=== PATIENT | male | born 1985 | race Caucasian/White ===

== ENCOUNTER 2020-09-07 04:22 | Inpatient (IN) | payer BC ==
[2020-09-07] MEDS ORDERED: Ondansetron PF 4 MG/2 ML Vial ONE (04:45)
[2020-09-07 04:52] LABS: #Eosinphils 0.2 thou/uL (0.0-0.7); #Lymphocytes 1.4 thou/uL (1.20-3.40); #Monocytes 0.7 thou/uL (0.11-0.59); #Neutrophils 7.4 thou/uL (1.40-6.50); %Basophils 0.5 % (0.0-1.0); %Eosinophils 1.6 % (0.0-10.0); %Lymphocytes 14.6 % (21.0-51.0); %Monocytes 7.6 % (0.0-10.0); %Neutrophils 75.8 % (42.0-75.0); Hemoglobin 15.3 g/dL (14.0-18.0); Mean Corpuscular HGB CONC 32.6 g/dL (32.0-36.0); Mean Corpuscular Hemoglobin 28.1 pg (27.0-31.0); Mean Corpuscular Volume 86.2 fL (78.0-98.0); Mean Platelet Volume 7.4 fL (7.4-10.4); Platelet Count 373 thou/uL (130-400); RBC Distribution Width 12.9 % (11.5-14.5); Red Blood Cell (RBC) Count 5.44 mill/uL (4.70-6.10); White Blood Cell (WBC) Count 9.8 thou/uL (4.8-10.8)
[2020-09-07 05:00] LABS: Analyzer IN Cardio ER; Base Excess -20.1 mEq/L (-2.0 to +3.0); Calcium, Ionized (venous) 1.17 mmol/L (1.16-1.32); Chloride (VBG) 99 mmol/L (98-106); Hemoglobin (Hb) 16.2 g/dL (13.2-17.3); Potassium (VBG) 4.52 mmol/L (3.70-5.30); Sodium 128.7 mmol/L (133-146)
[2020-09-07 05:05] LABS: pH (venous) 7.19 (7.32-7.43)
[2020-09-07 05:06] LABS: Actual Bicarbonate (HCO3v) 5 mEq/L (22-28)
[2020-09-07 05:14] LABS: ALT (SGPT) 34 U/L (8-55); AST (SGOT) 25 U/L (5-34); Albumin 4.4 g/dL (3.5-5.0); Alkaline Phosphatase 106 U/L (40-110); BUN (Urea Nitrogen) 8 mg/dL (8.9-20.6); Bilirubin, Total 0.4 mg/dL (0.2-1.2); Calc. Creatinine Clearance 0 mL/min (70-130); Calcium 8.7 mg/dL (7.8-10.44); Chloride 101 mmol/L (98-107); Globulin 4.2 g/dL (2.4-3.5); Glucose 368 mg/dL (70-105); Lipase 25 U/L (8-78); Magnesium 2.1 mg/dL (1.6-2.6); Potassium 3.6 mmol/L (3.5-5.1); Protein, Total 8.6 g/dL (6.0-8.3); Sodium 127 mmol/L (136-145)
[2020-09-07 05:18] LABS: Carbon Dioxide Less than 8 mmol/L (22-29)
[2020-09-07] MEDS ORDERED: Insulin Regular 300 UNITS/3 ML VIAL ONE (05:29)
[2020-09-07] MEDS ORDERED: INSULIN REGULAR IN 0.9 % NACL 100 UNIT/100 ML BAG ONE (05:32)
[2020-09-07] MEDS ORDERED: Bisacodyl 5 MG TAB PO PRN (06:20)
[2020-09-07] MEDS ORDERED: HYDROcodone/Acetaminophen 5/325 mg Tablet PO PRN (06:20)
[2020-09-07] MEDS ORDERED: Ondansetron PF 4 MG/2 ML Vial IVP PRN (06:20)
[2020-09-07] MEDS ORDERED: Electrolyte Replacement Protocol 1 EACH IVPB ONE (06:20)
[2020-09-07] MEDS ORDERED: Dextrose 5 %-0.45 % NaCl 1,000 ML IV PRN (06:20)
[2020-09-07] MEDS ORDERED: NS 0.9% w/ 20 MEQ KCL 1,000 ML IV PRN ×2 (06:20)
[2020-09-07] MEDS ORDERED: Sodium Chloride 0.9% 1,000 ML IV PRN ×4 (06:20)
[2020-09-07] MEDS ORDERED: Acetaminophen 325 MG TAB PO PRN (06:20)
[2020-09-07] MEDS ORDERED: Morphine 2 MG/ML VIAL SLOW IVP PRN (06:26)
[2020-09-07] MEDS ORDERED: Labetalol HCl 100 MG/20 ML VIAL SLOW IVP PRN (06:26)
[2020-09-07] MEDS ORDERED: Sodium Bicarb 50 MEQ/50 ML Abboject 8.4% SYRINGE IVP SCH (06:30)
[2020-09-07] MEDS ORDERED: Electrolyte Replacement Protocol FS PRN (06:45)
[2020-09-07 07:21] LABS: BUN (Urea Nitrogen) 8 mg/dL (8.9-20.6); Calc. Creatinine Clearance 0 mL/min (70-130); Calcium 8.2 mg/dL (7.8-10.44); Carbon Dioxide Less than 8 mmol/L (22-29); Chloride 109 mmol/L (98-107); Glucose 189 mg/dL (70-105); Phosphorus 1.5 mg/dL (2.3-4.7); Potassium 3.6 mmol/L (3.5-5.1); Sodium 132 mmol/L (136-145)
[2020-09-07 07:47] LABS: SARS-CoV-2 NAA Rapid Test Not Detected (NotDetected)
[2020-09-07 08:01] VITALS: BMI 54.6
[2020-09-07] MEDS: Famotidine 20 MG TAB PO SCH ×2 (09:41→20:04)
[2020-09-07] MEDS: Enoxaparin Sodium 40 MG/0.4 ML SYRINGE SC SCH (09:41)
[2020-09-07] MEDS: PHOS-NAK 1 PKT PACK PO SCH ×5 (09:41→23:09)
[2020-09-07] MEDS: D5 1/2 NS w/20 mEq KCL 1,000 ML IV PRN ×4 (11:38→23:09)
[2020-09-07 11:44] LABS: BUN (Urea Nitrogen) 8 mg/dL (8.9-20.6); Calc. Creatinine Clearance 211 mL/min (70-130); Calcium 7.9 mg/dL (7.8-10.44); Chloride 107 mmol/L (98-107); Glucose 240 mg/dL (70-105); Potassium 3.2 mmol/L (3.5-5.1); Sodium 132 mmol/L (136-145)
[2020-09-07 11:56] LABS: Carbon Dioxide Less than 8 mmol/L (22-29)
[2020-09-07 13:27] LABS: Albumin 3.9 g/dL (3.5-5.0); BUN (Urea Nitrogen) 7 mg/dL (8.9-20.6); BUN/Creatinine Ratio 5.15; Calc. Creatinine Clearance 205 mL/min (70-130); Chloride 107 mmol/L (98-107); Glucose 246 mg/dL (70-105); Potassium 3.3 mmol/L (3.5-5.1); Sodium 132 mmol/L (136-145)
[2020-09-07 13:35] LABS: Carbon Dioxide Less than 8 mmol/L (22-29); Phosphorus 1.7 mg/dL (2.3-4.7)
[2020-09-07] MEDS ORDERED: Potassium Chloride 20 MEQ TAB PO SCH (14:00)
[2020-09-07 15:11] LABS: Anion Gap 20 mmol/L (10-20); BUN (Urea Nitrogen) 7 mg/dL (8.9-20.6); Calc. Creatinine Clearance 211 mL/min (70-130); Calcium 7.9 mg/dL (7.8-10.44); Chloride 107 mmol/L (98-107); Glucose 233 mg/dL (70-105); Potassium 3.2 mmol/L (3.5-5.1); Sodium 132 mmol/L (136-145)
[2020-09-07 15:15] LABS: Carbon Dioxide 8 mmol/L (22-29)
[2020-09-07] MEDS: HUMULIN R 100 UNITS in Sodium Chloride 0.9% 100 ML IVPB SCH (15:28)
[2020-09-07 19:17] LABS: Anion Gap 18 mmol/L (10-20); BUN (Urea Nitrogen) 6 mg/dL (8.9-20.6); Calc. Creatinine Clearance 210 mL/min (70-130); Calcium 7.9 mg/dL (7.8-10.44); Carbon Dioxide 8 mmol/L (22-29); Chloride 109 mmol/L (98-107); Glucose 184 mg/dL (70-105); Magnesium 2.1 mg/dL (1.6-2.6); Phosphorus 1.2 mg/dL (2.3-4.7); Potassium 3.6 mmol/L (3.5-5.1); Sodium 131 mmol/L (136-145)
[2020-09-07 23:25] LABS: Anion Gap 17 mmol/L (10-20); BUN (Urea Nitrogen) 6 mg/dL (8.9-20.6); Calc. Creatinine Clearance 229 mL/min (70-130); Calcium 7.9 mg/dL (7.8-10.44); Chloride 111 mmol/L (98-107); Glucose 177 mg/dL (70-105); Potassium 3.6 mmol/L (3.5-5.1); Sodium 133 mmol/L (136-145)
[2020-09-07 23:26] LABS: Bacteria/HPF None Seen HPF (None Seen); Bilirubin Negative (Negative); Blood, Urine 1+ (Negative); Clarity Clear (Clear); Glucose, Urine (Dipstick) 300 mg/dL (Negative); Ketone, Urine 100 mg/dL (Negative); Leukocyte Negative Leu/uL (Negative); Nitrite Negative (Negative); Protein, Urine (Dipstick) 70 mg/dL (Neg-Trace); RBC/HPF 0-3 HPF (0-3); Specific Gravity, Urine 1.015 (1.002-1.036); Squamous Epithelial 0-3 HPF (0-3); Urobilinogen Normal mg/dL (Less than 2); WBC/HPF 0-3 HPF (0-3)
[2020-09-07 23:35] LABS: Carbon Dioxide 9 mmol/L (22-29)
[2020-09-08] MEDS: HUMULIN R 100 UNITS in Sodium Chloride 0.9% 100 ML IVPB SCH (00:02)
[2020-09-08] MEDS: PHOS-NAK 1 PKT PACK PO SCH ×3 (02:43→12:44)
[2020-09-08] MEDS: D5 1/2 NS w/20 mEq KCL 1,000 ML IV PRN (04:06)
[2020-09-08 06:22] LABS: Anion Gap 14 mmol/L (10-20); BUN (Urea Nitrogen) 5 mg/dL (8.9-20.6); Calc. Creatinine Clearance 247 mL/min (70-130); Calcium 8.1 mg/dL (7.8-10.44); Carbon Dioxide 10 mmol/L (22-29); Chloride 116 mmol/L (98-107); Glucose 155 mg/dL (70-105); Potassium 4.2 mmol/L (3.5-5.1); Sodium 136 mmol/L (136-145)
[2020-09-08] MEDS ORDERED: Magnesium 2 GM/50 ML 2 GM in Premix Bag 1 BAG IVPB SCH (06:30)
[2020-09-08] MEDS: Dextrose 5%-Lactated Ringers 1,000 ML IV SCH ×2 (08:38→12:57)
[2020-09-08 08:52] LABS: #Eosinphils 0.1 thou/uL (0.0-0.7); #Lymphocytes 1.8 thou/uL (1.20-3.40); #Monocytes 0.7 thou/uL (0.11-0.59); #Neutrophils 2.8 thou/uL (1.40-6.50); %Basophils 0.8 % (0.0-1.0); %Eosinophils 2.3 % (0.0-10.0); %Lymphocytes 32.8 % (21.0-51.0); %Monocytes 12.2 % (0.0-10.0); %Neutrophils 51.9 % (42.0-75.0); Hemoglobin 13.9 g/dL (14.0-18.0); Mean Corpuscular HGB CONC 34.3 g/dL (32.0-36.0); Mean Corpuscular Hemoglobin 29.6 pg (27.0-31.0); Mean Corpuscular Volume 86.2 fL (78.0-98.0); Platelet Count 279 thou/uL (130-400); RBC Distribution Width 12.8 % (11.5-14.5); Red Blood Cell (RBC) Count 4.71 mill/uL (4.70-6.10); White Blood Cell (WBC) Count 5.4 thou/uL (4.8-10.8)
[2020-09-08 09:14] LABS: Phosphorus 1.3 mg/dL (2.3-4.7)
[2020-09-08] MEDS: Famotidine 20 MG TAB PO SCH ×2 (09:38→20:44)
[2020-09-08] MEDS: Enoxaparin Sodium 40 MG/0.4 ML SYRINGE SC SCH (09:38)
[2020-09-08] MEDS ORDERED: Potassium Phosphate 22 MMOL in Sodium Chloride 0.9% 250 ML 250 ML IVPB SCH (11:45)
[2020-09-08] MEDS ORDERED: Dextrose 50% Abboject 50 ML SYRINGE SLOW IVP PRN (13:30)
[2020-09-08] MEDS ORDERED: Dextrose 5% in Water 1,000 ML IV PRN (13:30)
[2020-09-08] MEDS ORDERED: Lantus 1000 UNITS/10 ML VIAL SC SCH (15:00)
[2020-09-08] MEDS: Lactated Ringer's 1,000 ML IV SCH (15:02)
[2020-09-08 16:28] LABS: Anion Gap 16 mmol/L (10-20); BUN (Urea Nitrogen) Less than 4 mg/dL (8.9-20.6); Calc. Creatinine Clearance 250 mL/min (70-130); Calcium 8.2 mg/dL (7.8-10.44); Carbon Dioxide 14 mmol/L (22-29); Chloride 107 mmol/L (98-107); Glucose 239 mg/dL (70-105); Sodium 134 mmol/L (136-145)
[2020-09-08] MEDS ORDERED: Sodium Bicarbonate Tab 325 MG TAB PO SCH (19:00)
[2020-09-08] MEDS: Lantus 1000 UNITS/10 ML VIAL SC SCH (20:44)
[2020-09-08] MEDS: Sodium Bicarbonate Tab 325 MG TAB PO SCH (21:32)
[2020-09-09] MEDS: Lactated Ringer's 1,000 ML IV SCH ×4 (00:56→12:00)
[2020-09-09 05:24] LABS: Anion Gap 16 mmol/L (10-20); BUN (Urea Nitrogen) Less than 4 mg/dL (8.9-20.6); Calc. Creatinine Clearance 283 mL/min (70-130); Calcium 8.4 mg/dL (7.8-10.44); Carbon Dioxide 19 mmol/L (22-29); Chloride 104 mmol/L (98-107); Glucose 224 mg/dL (70-105); Sodium 136 mmol/L (136-145)
[2020-09-09 05:30] LABS: Potassium 2.7 mmol/L (3.5-5.1)
[2020-09-09] MEDS ORDERED: Potassium Chloride 20 MEQ TAB PO SCH ×2 (06:00→10:00)
[2020-09-09] MEDS ORDERED: Magnesium 2 GM/50 ML 2 GM in Premix Bag 1 BAG IVPB SCH (06:00)
[2020-09-09] MEDS: PHOS-NAK 1 PKT PACK PO SCH ×3 (06:25→20:53)
[2020-09-09] MEDS: HumaLOG 300 UNITS/3 ML VIAL SC PRN ×3 (06:27→20:55)
[2020-09-09] MEDS ORDERED: Potassium Phosphate 30 MMOL in Sodium Chloride 0.9% 250 ML 250 ML IVPB SCH ×2 (07:30→16:30)
[2020-09-09] MEDS: Losartan 25 MG TAB PO SCH (11:02)
[2020-09-09] MEDS: Famotidine 20 MG TAB PO SCH ×2 (11:02→20:54)
[2020-09-09] MEDS: Enoxaparin Sodium 40 MG/0.4 ML SYRINGE SC SCH (11:02)
[2020-09-09] MEDS: Potassium Chloride 20 MEQ TAB PO SCH ×2 (11:03→18:21)
[2020-09-09] MEDS: Sodium Bicarbonate Tab 325 MG TAB PO SCH ×3 (11:03→20:54)
[2020-09-09] MEDS ORDERED: PHOS-NAK 1 PKT PACK PO SCH (11:15)
[2020-09-09] MEDS ORDERED: Fleet Enema 133 ML BOT FS PRN (11:35)
[2020-09-09] MEDS ORDERED: Lorazepam 2 MG/ML VIAL SLOW IVP PRN (13:49)
[2020-09-09] MEDS ORDERED: ALPRAZolam 0.25 MG TAB PO PRN (14:30)
[2020-09-09 15:27] LABS: Albumin 3.5 g/dL (3.5-5.0); Anion Gap 14 mmol/L (10-20); BUN (Urea Nitrogen) Less than 4 mg/dL (8.9-20.6); BUN/Creatinine Ratio 4.04; Calc. Creatinine Clearance 278 mL/min (70-130); Calcium 8.3 mg/dL (7.8-10.44); Carbon Dioxide 22 mmol/L (22-29); Chloride 103 mmol/L (98-107); Glucose 271 mg/dL (70-105); Phosphorus 1.9 mg/dL (2.3-4.7); Potassium 3.1 mmol/L (3.5-5.1); Sodium 136 mmol/L (136-145)
[2020-09-09] MEDS ORDERED: Lactated Ringer's 1,000 ML IV SCH (16:30)
[2020-09-09] MEDS: Lantus 1000 UNITS/10 ML VIAL SC SCH (20:55)
[2020-09-10] MEDS: HumaLOG 300 UNITS/3 ML VIAL SC PRN ×4 (05:43→20:38)
[2020-09-10] MEDS ORDERED: Potassium Chloride 10 MEQ TAB PO SCH (06:30)
[2020-09-10 07:03] LABS: Hemoglobin 11.6 g/dL (14.0-18.0); Hemoglobin A1c 11.8 % (4.0-6.0); Mean Corpuscular Hemoglobin 30.3 pg (27.0-31.0); Mean Corpuscular Volume 86.5 fL (78.0-98.0); Mean Platelet Volume 7.7 fL (7.4-10.4); Platelet Count 251 thou/uL (130-400); Red Blood Cell (RBC) Count 3.83 mill/uL (4.70-6.10); White Blood Cell (WBC) Count 4.3 thou/uL (4.8-10.8)
[2020-09-10 07:24] LABS: Albumin 3.2 g/dL (3.5-5.0); Anion Gap 13 mmol/L (10-20); BUN (Urea Nitrogen) Less than 4 mg/dL (8.9-20.6); Calc. Creatinine Clearance 324 mL/min (70-130); Calcium 8.2 mg/dL (7.8-10.44); Carbon Dioxide 24 mmol/L (22-29); Chloride 102 mmol/L (98-107); Glucose 258 mg/dL (70-105); Phosphorus 2.8 mg/dL (2.3-4.7); Potassium 2.5 mmol/L (3.5-5.1); Sodium 136 mmol/L (136-145)
[2020-09-10] MEDS ORDERED: HumuLIN 70/30 (300 UNITS/3 ML VIAL) SC SCH (09:00)
[2020-09-10 09:57] LABS: Band 3 % (5-11); Eosinophils 5 % (0-10); Lymphocytes 42 % (21-51); MDiff Complete? YES; Metamyelocyte 1 % (0-0); Monocytes 14 % (0-10); Neutrophil 33 % (42-75); Platelet Morphology Comment Appears Adequate; RBC Morphology Normal
[2020-09-10] MEDS: PHOS-NAK 1 PKT PACK PO SCH ×5 (09:57→20:28)
[2020-09-10] MEDS: Sodium Bicarbonate Tab 325 MG TAB PO SCH ×3 (09:58→20:29)
[2020-09-10] MEDS: Enoxaparin Sodium 40 MG/0.4 ML SYRINGE SC SCH (09:58)
[2020-09-10] MEDS: Famotidine 20 MG TAB PO SCH ×2 (09:58→20:29)
[2020-09-10] MEDS: Losartan 25 MG TAB PO SCH (10:01)
[2020-09-10] MEDS: Potassium Chloride 20 MEQ TAB PO SCH ×2 (10:03→12:42)
[2020-09-10] MEDS ORDERED: Lantus 1000 UNITS/10 ML VIAL SC SCH (21:00)
[2020-09-11] MEDS: HumaLOG 300 UNITS/3 ML VIAL SC PRN ×2 (05:38→12:28)
[2020-09-11 07:51] LABS: Anion Gap 13 mmol/L (10-20); BUN (Urea Nitrogen) Less than 4 mg/dL (8.9-20.6); Calc. Creatinine Clearance 349 mL/min (70-130); Calcium 8.3 mg/dL (7.8-10.44); Carbon Dioxide 27 mmol/L (22-29); Chloride 102 mmol/L (98-107); Glucose 263 mg/dL (70-105); Sodium 139 mmol/L (136-145)
[2020-09-11 07:54] LABS: Potassium 2.8 mmol/L (3.5-5.1)
[2020-09-11] MEDS ORDERED: metFORMIN 500 MG TAB PO SCH (08:00)
[2020-09-11] MEDS ORDERED: Magnesium 2 GM/50 ML 2 GM in Premix Bag 1 BAG IVPB SCH (08:15)
[2020-09-11 08:19] VITALS: BP 119/53; TEMP 98
[2020-09-11] MEDS ORDERED: Rosuvastatin 20 MG TAB PO SCH (09:00)
[2020-09-11] MEDS ORDERED: Lantus 1000 UNITS/10 ML VIAL SC SCH (09:00)
[2020-09-11] MEDS: Enoxaparin Sodium 40 MG/0.4 ML SYRINGE SC SCH (09:11)
[2020-09-11] MEDS: PHOS-NAK 1 PKT PACK PO SCH (09:12)
[2020-09-11] MEDS: Losartan 25 MG TAB PO SCH (09:12)
[2020-09-11] MEDS: Famotidine 20 MG TAB PO SCH (09:12)
[2020-09-11] MEDS: Potassium Chloride 20 MEQ TAB PO SCH ×2 (09:12→12:29)
== END 2020-09-11 12:45 | disposition home or self-care (01) | DRG 638 ==
LOC: ERS 04:22 → IMCU/EMU 05:49 → ONC 09-09 09:06
PROVIDERS: ADMIT Internal Medicine; ATTEND Internal Medicine
DX: E10.10 Type 1 diabetes mellitus with ketoacidosis without coma (principal); N17.9 Acute kidney failure, unspecified; E87.1 Hypo-osmolality and hyponatremia; Z68.43 Body mass index [BMI] 50.0-59.9, adult; Z20.822 Contact with and (suspected) exposure to COVID-19; I10 Essential (primary) hypertension; E66.01 Morbid (severe) obesity due to excess calories; I16.0 Hypertensive urgency; E83.42 Hypomagnesemia; E83.39 Other disorders of phosphorus metabolism; E87.6 Hypokalemia; Z79.4 Long term (current) use of insulin; Z79.899 Other long term (current) drug therapy
CPT/HCPCS: 36415; 36416; 71045; 80048; 80053; 80069; 81003; 81015; 82010; 82805; 83036; 83690; 83735; 84100; 84484; 85025; 93005; 96365; 96366; 96374; 96375; J1650; J1815; J2405; J3475; J3480; J3490; J7050; U0002

== ENCOUNTER 2023-06-09 10:20 | Emergency (ER) | payer BC, SELFPAY ==
[2023-06-09 12:26] LABS: ALT (SGPT) 13 U/L (8-55); AST (SGOT) 12 U/L (5-34); Albumin 4.5 g/dL (3.5-5.0); Alkaline Phosphatase 44 U/L (40-110); Anion Gap 15 mmol/L (10-20); BUN (Urea Nitrogen) 8 mg/dL (8.9-20.6); Bilirubin, Total 0.6 mg/dL (0.2-1.2); Calc. Creatinine Clearance 0 mL/min (70-130); Calcium 9.5 mg/dL (7.8-10.44); Carbon Dioxide 21 mmol/L (22-29); Chloride 105 mmol/L (98-107); Estimated GFR 118; Glucose 109 mg/dL (70-105); Potassium 3.9 mmol/L (3.5-5.1); Protein, Total 7.5 g/dL (6.0-8.3); Sodium 137 mmol/L (136-145)
== END 2023-06-09 12:51 | disposition home or self-care (01) ==
LOC: ERS 10:20
DX: E11.40 Type 2 diabetes mellitus with diabetic neuropathy, unspecified (principal); E03.0 Congenital hypothyroidism with diffuse goiter; Z76.0 Encounter for issue of repeat prescription; Z87.891 Personal history of nicotine dependence
CPT/HCPCS: 36415; 36416; 80053; 99283